=== PATIENT | female | born 1985 | race Caucasian/White ===

== ENCOUNTER 2022-04-24 10:40 | Outpatient (CLI) | payer OTHER | END 2022-04-24 11:29 | disposition home or self-care (01) | LOC: NST 10:40 | PROVIDERS: ATTEND Obstetrics & Gynecology | DX: Z34.83 Encounter for supervision of other normal pregnancy, third trimester (principal) ==

== ENCOUNTER 2022-05-03 11:50 | Inpatient (IN) | payer OTHER ==
[~2022-05-03] VITALS: Ht 152.4 cm; Wt 2.7 kg
[2022-05-09] MEDS ORDERED: SYNTHROID112 MCG PO (08:25)
[2022-05-09] MEDS ORDERED: COMPLETE NATAL1 EACH PO (08:26)
[2022-05-11] MEDS ORDERED: OXYC1TAB9 PO (12:28)
[2022-05-11] MEDS ORDERED: KETO10TA2 PO (12:29)
== END 2022-05-11 15:09 | disposition home or self-care (01) | DRG 788 ==
LOC: O/R 05-09 09:11 → OB/GYN 05-09 11:30
PROVIDERS: Obstetrics & Gynecology; ADMIT Obstetrics & Gynecology Maternal & Fetal Medicine; ATTEND Obstetrics & Gynecology Maternal & Fetal Medicine
PROC: 4A1HXCZ Monitoring of Products of Conception, Cardiac Rate, External Approach (ICD-10-PCS; 2022-05-09)
PROC: 10D00Z1 Extraction of Products of Conception, Low, Open Approach (ICD-10-PCS; principal; 2022-05-09 15:20)
DX: O32.1XX0 Maternal care for breech presentation, not applicable or unspecified (principal); Z3A.37 37 weeks gestation of pregnancy; Z37.0 Single live birth; Z20.822 Contact with and (suspected) exposure to COVID-19; O99.824 Streptococcus B carrier state complicating childbirth

== ENCOUNTER 2025-02-17 06:00 | Day surgery (SDC) | payer OTHER ==
[~2025-02-17 06:00] MED LIST: COMPLETE NATAL1 EACH PO; KETO10TA2 PO; OXYC1TAB9 PO; SYNTHROID112 MCG PO
[2025-02-17] MEDS ORDERED: BUPIVACAINE HCL/MPF 0.5% 30ML VIAL ONE (11:21)
[2025-02-17] MEDS ORDERED: HEMOSTATIC MATRIX WITH THROMBIN KIT TOP ONE (11:21)
[2025-02-17] MEDS ORDERED: POVIDONE-IODINE 118 ML BOTT TOP ONE (11:21)
[2025-02-17] MEDS ORDERED: DIBUCAINE 30 GM TUBE ONE (11:21)
[2025-02-17] MEDS ORDERED: METRONIDAZOLE/SODIUM CHLORIDE 500 MG/100 ML PIGGYBACK IV ONE (11:22)
[2025-02-17] MEDS ORDERED: CEFTRIAXONE SODIUM 2,000 MG VIAL ONE (11:22)
[2025-02-17] MEDS ORDERED: LIDOCAINE HCL 1%/EPINEPHRINE 20ML VIAL IJ ONE (11:22)
== END 2025-02-17 18:00 | disposition home or self-care (01) ==
LOC: CIR.AMB 06:00
PROVIDERS: ATTEND Colon & Rectal Surgery
DX: K64.2 Third degree hemorrhoids (principal); K64.4 Residual hemorrhoidal skin tags